=== PATIENT | male | born 1990 | race Two or more races ===

== ENCOUNTER 2019-11-08 14:12 | Emergency (ER) | payer OTHER ==
[~2019-11-08] VITALS: Ht 180.3 cm; Wt 91.9 kg
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
[2019-11-08] MEDS ORDERED: IBUP-1022 PO (15:39)
[2019-11-08] MEDS ORDERED: CYCL-707 PO (15:39)
[2019-11-08 15:51] VITALS: BP 136/74
--- NOTE | 2019-11-09 09:28 | ED PDOC ---
Post-Departure Follow-Up radiology rpeort faxed to [facility] Roxana Ha MD Nov 09, 2019 09:28
== END 2019-11-08 15:52 | disposition home or self-care (01) ==
LOC: M ED 14:12
DX: S39.012A Strain of muscle, fascia and tendon of lower back, initial encounter (principal); S23.3XXA Sprain of ligaments of thoracic spine, initial encounter; S16.1XXA Strain of muscle, fascia and tendon at neck level, initial encounter; R91.1 Solitary pulmonary nodule; V43.52XA Car driver injured in collision with other type car in traffic accident, initial encounter; Y92.9 Unspecified place or not applicable; Y93.9 Activity, unspecified; Y99.9 Unspecified external cause status